=== PATIENT | female | born 1990 ===

== ENCOUNTER 2018-05-07 14:16 | Emergency (ER) | payer SELFPAY ==
[2018-05-07 14:36] VITALS: BMI 35.7
--- NOTE | 2018-05-07 16:21 | C.PDOC ---
History Of Present Illness 28-year-old female presents to the ED for evaluation of cold and congestion which worsened today. Patient denies nausea, vomiting. Time Seen by Provider: 05/07/18 14:58 Chief Complaint (Nursing): Cough, Cold, Congestion History Per: Patient History/Exam Limitations: no limitations Onset/Duration Of Symptoms: Hrs Current Symptoms Are (Timing): Worse Additional History Per: Patient Past Medical History Reviewed: Historical Data, Nursing Documentation, Vital Signs Vital Signs: Last Vital Signs Temp 98 F 05/07/18 14:37 Pulse 80 05/07/18 14:37 Resp 20 05/07/18 14:37 BP 102/71 05/07/18 14:37 Pulse Ox 98 05/07/18 14:37 - Medical History PMH: No Chronic Diseases Surgical History: No Surg Hx Family History: States: Unknown Family Hx - Social History Hx Alcohol Use: No Hx Substance Use: No - Immunization History Hx Tetanus Toxoid Vaccination: No Hx Influenza Vaccination: No Hx Pneumococcal Vaccination: No Review Of Systems ENT: Positive for: Nose Congestion Respiratory: Positive for: Cough Gastrointestinal: Negative for: Nausea, Vomiting Physical Exam - Physical Exam Appears: Non-toxic, No Acute Distress Skin: Normal Color, Warm, Dry Head: Atraumatic, Normacephalic Eye(s): bilateral: Normal Inspection Nose: Other (congestion ) Oral Mucosa: Moist Throat: Normal, No Erythema, No Exudate Neck: Supple Chest: Symmetrical, No Deformity, No Tenderness Cardiovascular: Rhythm Regular, No Murmur Respiratory: Normal Breath Sounds, No Rales, No Rhonchi, No Wheezing Extremity: Normal ROM Neurological/Psych: Oriented x3, Normal Speech, Normal Cognition ED Course And Treatment O2 Sat by Pulse Oximetry: 98 Medical Decision Making Medical Decision Making: Patient was given Claritin PO Tylenol PO. On reassessment, patient is resting comfortably showing no signs of distress and stable for discharge. Patient advised to follow up with her PMD in 1 to 2 days for further evaluation. Disposition Counseled Patient/Family Regarding: Studies Performed, Diagnosis, Rx Given - Disposition Disposition: HOME/ ROUTINE Disposition Time: 16:20 Prescriptions: Loratadine [Claritin] 10 mg PO BID #30 tab Oseltamivir Cap [Tamiflu] 1 cap PO BID #10 cap Instructions: Upper Respiratory Infection (ED) Forms: [employer] (Croatian), Work Excuse - POA Present On Arrival: None - Clinical Impression Clinical Impression: Influenza-like illness,
[2018-05-07 16:40] VITALS: BP 112/75; PULSE 76; RESP 18; TEMP 98.1
[2018-05-07 23:51] VITALS: O2SAT 98
== END 2018-05-07 16:50 | disposition home or self-care (01) ==
LOC: C.ER 14:16
DX: O26.899 Other specified pregnancy related conditions, unspecified trimester (principal); J11.1 Influenza due to unidentified influenza virus with other respiratory manifestations; Z3A.00 Weeks of gestation of pregnancy not specified

== ENCOUNTER 2018-05-12 09:27 | Emergency (ER) | payer OTHER | END 2018-05-12 12:40 | disposition home or self-care (01) | LOC: C.ER 09:27 ==

== ENCOUNTER 2018-05-25 11:06 | Emergency (ER) | payer OTHER ==
[2018-05-25 11:07] VITALS: BMI 35.7
[2018-05-25 11:30] VITALS: TEMP 98.2; O2SAT 100
[2018-05-25 12:11] LABS: SQUAMOUS EPITHIAL 10 /hpf (0-5); URINE BACTERIA RARE (<OCC); URINE BILIRUBIN NEGATIVE (NEGATIVE); URINE BLOOD NEGATIVE (NEGATIVE); URINE CLARITY Hazy (Clear); URINE COLOR Yellow (YELLOW); URINE GLUCOSE (UA) NORMAL (Normal); URINE LEUKOCYTE ESTERASE 2+ Leu/uL (Negative); URINE PROTEIN NEGATIVE (NEGATIVE); URINE UROBILINOGEN NORMAL mg/dL (0.2-1.0)
--- NOTE | 2018-05-25 12:17 | C.PDOC ---
History Of Present Illness 28yo female, otherwise well, currently 3 months , comes to ER for evaluation of lower abdominal cramping present intermittently. She reports frequency and denies any dysuria, vaginal discharge or bleed. Patient noted to have an IUP during her prior visit and was treated for the flu as well. She denies any fever, chills, nausea, vomiting or constipation. No additional complaints. Time Seen by Provider: 05/25/18 11:21 Chief Complaint (Nursing): Female Genitourinary History Per: Patient History/Exam Limitations: no limitations Onset/Duration Of Symptoms: Days Current Symptoms Are (Timing): Still Present Quality Of Discomfort: Pressure Associated Symptoms: Urinary Symptoms. denies: Fever, Chills, Nausea, Vomiting Additional History Per: Patient Abnormal Vaginal Bleeding: No Past Medical History Reviewed: Historical Data, Nursing Documentation, Vital Signs Vital Signs: Last Vital Signs Temp 98.2 F 05/25/18 11:10 Pulse 67 05/25/18 11:10 Resp 16 05/25/18 11:10 BP 105/70 05/25/18 11:10 Pulse Ox 100 05/25/18 11:10 - Medical History PMH: No Chronic Diseases Surgical History: No Surg Hx Family History: States: No Known Family Hx - Social History Hx Alcohol Use: No Hx Substance Use: No - Immunization History Hx Tetanus Toxoid Vaccination: No Hx Influenza Vaccination: No Hx Pneumococcal Vaccination: No Review Of Systems Except As Marked, All Systems Reviewed And Found Negative. Constitutional: Negative for: Fever, Chills Cardiovascular: Negative for: Chest Pain Respiratory: Negative for: Shortness of Breath Gastrointestinal: Positive for: Abdominal Pain (lower abdominal pain) Genitourinary: Positive for: Frequency. Negative for: Dysuria, Hematuria, Vaginal Discharge, Vaginal Bleeding Neurological: Negative for: Weakness, Numbness Physical Exam - Physical Exam Appears: Non-toxic, No Acute Distress Skin: Normal Color Head: Atraumatic, Normacephalic Eye(s): bilateral: Normal Inspection Neck: Normal ROM, Supple Chest: Symmetrical Cardiovascular: Rhythm Regular Respiratory: Normal Breath Sounds Gastrointestinal/Abdominal: Soft, Tenderness (minimal lower abdominal tenderness), No Guarding, No Rebound Back: Normal Inspection, No CVA Tenderness Extremity: Normal ROM, No Pedal Edema Neurological/Psych: Oriented x3 ED Course And Treatment - Laboratory Results Lab Results: Urine Color Yellow (YELLOW) 05/25/18 11:56 Urine Clarity Hazy (Clear) 05/25/18 11:56 Urine pH 5.0 (5.0-8.0) 05/25/18 11:56 Ur Specific [place] 1.019 (1.003-1.030) 05/25/18 11:56 Urine Protein Negative mg/dL (NEGATIVE) 05/25/18 11:56 Urine Glucose (UA) Normal mg/dL (Normal) 05/25/18 11:56 Urine Ketones Negative mg/dL (NEGATIVE) 05/25/18 11:56 Urine Blood Negative (NEGATIVE) 05/25/18 11:56 Urine Nitrate Negative (NEGATIVE) 05/25/18 11:56 Urine Bilirubin Negative (NEGATIVE) 05/25/18 11:56 Urine Urobilinogen Normal mg/dL (0.2-1.0) 05/25/18 11:56 Ur Leukocyte Esterase 2+ [place]/uL (Negative) H 05/25/18 11:56 Urine WBC (Auto) 48 /hpf (0-5) H 05/25/18 11:56 Urine RBC (Auto) 4 /hpf (0-3) H 05/25/18 11:56 Ur Squamous Epith Cells 10 /hpf (0-5) H 05/25/18 11:56 Urine Bacteria Rare (<OCC) 05/25/18 11:56 O2 Sat by Pulse Oximetry: 100 (RA) Pulse Ox Interpretation: Normal Medical Decision Making Medical Decision Makinyo female, 3 months , comes with urinary symptoms and lower abdominal pain Plan: -- Urinalysis -- Beta-HCG UA reviewed, no signs of infection. Patient stable for discharge home, instructed to follow up with OBGYN. Disposition Counseled Patient/Family Regarding: Studies Performed, Need For Followup - Disposition Disposition: HOME/ ROUTINE Disposition Time: 12:15 Condition: STABLE Instructions: Symptoms Forms: [employer] [facility] (Ukrainian), Gen Discharge Inst Ukrainian Print Language: MACEDONIAN - Clinical Impression Clinical Impression: , Abdominal cramping - Scribe Statement The provider has reviewed the documentation as recorded by the Leo Francois Provider Attestation: All medical record entries made by the Brandonibameya were at my direction and personally dictated by me. I have reviewed the chart and agree that the record accurately reflects my personal performance of the history, physical exam, medical decision making, and the department course for this patient. I have also personally directed, reviewed, and agree with the discharge instructions and disposition.
[2018-05-25 12:22] VITALS: BP 110/74; PULSE 70; RESP 18
== END 2018-05-25 12:22 | disposition home or self-care (01) ==
LOC: C.ER 11:06
DX: O26.891 Other specified pregnancy related conditions, first trimester (principal); R10.30 Lower abdominal pain, unspecified; Z3A.00 Weeks of gestation of pregnancy not specified

== ENCOUNTER 2018-05-25 12:29 | Outpatient (CLI) | payer OTHER | END 2018-05-25 12:30 | disposition home or self-care (01) | LOC: C.LAB 12:29 | DX: Z34.91 Encounter for supervision of normal pregnancy, unspecified, first trimester (principal) ==

== ENCOUNTER 2018-06-28 11:47 | Outpatient (CLI) | payer OTHER | END 2018-06-28 11:48 | disposition home or self-care (01) | LOC: C.LAB 11:47 | DX: Z34.01 Encounter for supervision of normal first pregnancy, first trimester (principal) ==

== ENCOUNTER 2018-09-14 09:17 | Outpatient (CLI) | payer OTHER | END 2018-09-14 09:18 | disposition home or self-care (01) | LOC: C.LAB 09:17 | DX: Z34.02 Encounter for supervision of normal first pregnancy, second trimester (principal); O99.212 Obesity complicating pregnancy, second trimester ==